=== PATIENT | male | born 1960 | race Caucasian/White ===

== ENCOUNTER 2016-03-24 08:33 | Emergency (ER) | payer OTHER ==
[~2016-03-24] VITALS: Ht 185.4 cm; Wt 80.5 kg
[~2016-03-24 08:33] MED LIST: CIPR-278 PO; HYDR-3965 PO; LISI-662 PO
[2016-03-24 08:43] VITALS: BP 143/99
[2016-03-24 09:48] LABS: BASOPHILS % (AUTO) 0.3 % (0.0-2.0); EOSINOPHILS % (AUTO) 0.7 % (1.0-6.0); HEMATOCRIT 38.3 % (41-53); HEMOGLOBIN 12.9 g/dL (13.5-17.5); LYMPHOCYTES # (AUTO) 1.5 K/uL (1.0-4.8); LYMPHOCYTES % (AUTO) 20.5 % (22.0-44.0); MEAN CORPUSCULAR HEMOGLOBIN 31.8 pg (26.0-34.0); MEAN CORPUSCULAR HGB CONC 33.6 G/dL (31.0-37.0); MEAN CORPUSCULAR VOLUME 94 fL (80-100); MONOCYTES # (AUTO) 0.5 K/uL (0.1-1.0); MONOCYTES % (AUTO) 6.9 % (2.0-9.0); NEUTROPHILS # (AUTO) 5.2 K/uL (1.8-7.7); NEUTROPHILS % (AUTO) 71.6 % (40.0-70.0); PLATELET COUNT (AUTO) 281 K/uL (150-450); RED BLOOD CELL COUNT(AUTO) 4.06 MIL/uL (4.50-5.90); RED CELL DISTRIBUTION WIDTH 14.7 % (11.5-14.5); WHITE BLOOD COUNT (AUTO) 7.2 K/uL (4.5-11.0)
[2016-03-24 10:00] LABS: ANION GAP 6 mmol/L (8-16); CALCIUM, TOTAL 8.5 mg/dL (8.8-10.5); CARBON DIOXIDE 28 mmol/L (22-29); CHLORIDE 101 mmol/L (98-107); CREATININE 0.79 mg/dL (0.60-1.30); GLOMERULAR FILTR. RATE CALC > 60 mL/min (>60); POTASSIUM 4.4 mmol/L (3.5-5.1); SODIUM SERUM 135 mmol/L (136-145); UREA NITROGEN, BLOOD 18 mg/dL (7-18)
[2016-03-24 10:04] LABS: ALANINE AMINOTRANSFERASE 36 U/L (12-78); ALBUMIN 3.7 g/dL (3.4-5.0); ASPARTATE AMINOTRANSFERASE 25 U/L (15-37); BILIRUBIN,TOTAL 0.2 mg/dL (0.1-1.0); TOTAL PROTEIN, SERUM 6.6 g/dL (6.4-8.2)
[2016-03-24] MEDS ORDERED: HALOPERIDOL 5 MG TABLET PO ONE (10:30)
== END 2016-03-24 11:50 | disposition left against medical advice (07) ==
LOC: EMS 08:35
DX: L03.032 Cellulitis of left toe (principal); R44.3 Hallucinations, unspecified; J45.909 Unspecified asthma, uncomplicated; J44.9 Chronic obstructive pulmonary disease, unspecified; I10 Essential (primary) hypertension; F17.210 Nicotine dependence, cigarettes, uncomplicated; Z88.0 Allergy status to penicillin
CPT/HCPCS: 36415; 80053; 80307; 85025; 99284; G0480

== ENCOUNTER 2016-12-04 10:30 | Emergency (ER) | payer OTHER ==
[~2016-12-04] VITALS: Ht 185.4 cm; Wt 77.3 kg
[~2016-12-04 10:30] MED LIST changes: -HYDR-3965 PO; +HYDR-4061 PO
[2016-12-04] MEDS ORDERED: MOME13HF2 IH (10:53)
[2016-12-04] MEDS ORDERED: LORA10TA7 PO (10:53)
[2016-12-04] MEDS ORDERED: ESCI10TA54 PO (10:53)
[2016-12-04] MEDS ORDERED: HYDROCODONE/ACETAMINOPHEN 10-325 MG TABLET PO ONE (12:15)
[2016-12-04 14:00] VITALS: BP 135/78
== END 2016-12-04 14:15 | disposition home or self-care (01) ==
LOC: EMS 10:37
DX: S00.93XA Contusion of unspecified part of head, initial encounter (principal); L03.116 Cellulitis of left lower limb; I10 Essential (primary) hypertension; J45.909 Unspecified asthma, uncomplicated; F17.210 Nicotine dependence, cigarettes, uncomplicated; Z88.0 Allergy status to penicillin; W18.39XA Other fall on same level, initial encounter; Y93.89 Activity, other specified; Y92.89 Other specified places as the place of occurrence of the external cause; Y99.8 Other external cause status
CPT/HCPCS: 70450; 99284

== ENCOUNTER 2017-06-25 17:41 | Emergency (ER) | payer OTHER ==
[~2017-06-25] VITALS: Ht 185.4 cm; Wt 75.0 kg
[~2017-06-25 17:41] MED LIST changes: -CIPR-278 PO; +ESCI10TA54 PO; -HYDR-4061 PO; +LORA10TA7 PO; +MOME13HF2 IH
[2017-06-25 18:07] VITALS: BP 180/97
[2017-06-25] MEDS ORDERED: HYDROCODONE/ACETAMINOPHEN 5-325 MG TABLET PO ONE (18:15)
[2017-06-25] MEDS ORDERED: ALBUTEROL SULFATE HFA 90 MCG/PUFF 8 GM INHALER IH ONE (18:15)
[2017-06-25] MEDS ORDERED: PERMETHRIN 5% 60 GM CREAM TP ONE (18:15)
== END 2017-06-25 18:31 | disposition home or self-care (01) ==
LOC: EMS 17:43
DX: L03.116 Cellulitis of left lower limb (principal); B86 Scabies; L55.0 Sunburn of first degree; J44.9 Chronic obstructive pulmonary disease, unspecified; J45.909 Unspecified asthma, uncomplicated; I10 Essential (primary) hypertension; F17.210 Nicotine dependence, cigarettes, uncomplicated; Z76.0 Encounter for issue of repeat prescription; Z88.0 Allergy status to penicillin; Z59.0 Homelessness
CPT/HCPCS: 94640; 99283; J3535

== ENCOUNTER 2018-10-12 00:56 | Emergency (ER) | payer SELFPAY ==
[~2018-10-12] VITALS: Ht 185.4 cm; Wt 75.0 kg
[2018-10-12 02:04] VITALS: BP 150/88
[2018-10-12] MEDS ORDERED: FLUCONAZOLE 150 MG TABLET PO ONE (03:15)
== END 2018-10-12 04:17 | disposition home or self-care (01) ==
LOC: EMS 00:57
DX: B35.3 Tinea pedis (principal); I10 Essential (primary) hypertension; J44.9 Chronic obstructive pulmonary disease, unspecified; F15.90 Other stimulant use, unspecified, uncomplicated; F17.210 Nicotine dependence, cigarettes, uncomplicated; Z88.0 Allergy status to penicillin

== ENCOUNTER 2018-10-12 17:47 | Emergency (ER) | payer SELFPAY ==
[~2018-10-12] VITALS: Ht 185.4 cm; Wt 75.0 kg
[2018-10-12 18:31] LABS: GLUCOSE,POINT OF CARE 87 MG/DL (70-110)
[2018-10-12 21:11] VITALS: BP 155/91
== END 2018-10-12 21:30 | disposition home or self-care (01) ==
LOC: EMS 17:47
DX: B35.3 Tinea pedis (principal); L03.032 Cellulitis of left toe; L03.031 Cellulitis of right toe; I10 Essential (primary) hypertension; J44.9 Chronic obstructive pulmonary disease, unspecified; F15.90 Other stimulant use, unspecified, uncomplicated; F17.210 Nicotine dependence, cigarettes, uncomplicated; Z76.0 Encounter for issue of repeat prescription; Z88.0 Allergy status to penicillin; Z88.2 Allergy status to sulfonamides; Z88.5 Allergy status to narcotic agent

== ENCOUNTER 2018-11-22 15:55 | Emergency (ER) | payer SELFPAY ==
[~2018-11-22] VITALS: Ht 185.4 cm; Wt 79.5 kg
[2018-11-22] MEDS ORDERED: LISI-662 PO (16:08)
[2018-11-22] MEDS ORDERED: ACETAMINOPHEN 500 MG TABLET PO ONE (17:00)
[2018-11-22] MEDS ORDERED: LISINOPRIL 10 MG TABLET PO ONE (17:00)
[2018-11-22 17:22] VITALS: BP 145/87
== END 2018-11-22 17:20 | disposition home or self-care (01) ==
LOC: EMS 15:57
DX: M79.18 Myalgia, other site (principal); I10 Essential (primary) hypertension; J44.9 Chronic obstructive pulmonary disease, unspecified; F15.90 Other stimulant use, unspecified, uncomplicated; F17.210 Nicotine dependence, cigarettes, uncomplicated; Z02.89 Encounter for other administrative examinations; Z59.0 Homelessness; Z88.0 Allergy status to penicillin; Z88.2 Allergy status to sulfonamides; Z88.5 Allergy status to narcotic agent

== ENCOUNTER 2019-02-10 11:56 | Emergency (ER) | payer OTHER ==
[~2019-02-10] VITALS: Ht 185.4 cm; Wt 79.5 kg
[~2019-02-10 11:56] MED LIST changes: -ESCI10TA54 PO; -LORA10TA7 PO; -MOME13HF2 IH
[2019-02-10 12:00] VITALS: BP 147/79
[2019-02-10] MEDS ORDERED: KETOROLAC TROMETHAMINE 30 MG/ML VIAL IM ONE (12:15)
== END 2019-02-10 12:30 | disposition home or self-care (01) ==
LOC: EMS 12:00
DX: L97.529 Non-pressure chronic ulcer of other part of left foot with unspecified severity (principal); M79.671 Pain in right foot; J44.9 Chronic obstructive pulmonary disease, unspecified; I10 Essential (primary) hypertension; F17.210 Nicotine dependence, cigarettes, uncomplicated; F15.90 Other stimulant use, unspecified, uncomplicated; Z59.0 Homelessness; Z88.0 Allergy status to penicillin; Z88.2 Allergy status to sulfonamides; Z88.5 Allergy status to narcotic agent
CPT/HCPCS: 96372; 99283; 99406; J1885

== ENCOUNTER 2019-04-02 10:08 | Emergency (ER) | payer OTHER | END 2019-04-02 10:32 | disposition left against medical advice (07) | LOC: EMS 10:09 | DX: L08.9 Local infection of the skin and subcutaneous tissue, unspecified (principal); M79.671 Pain in right foot; I10 Essential (primary) hypertension; J44.9 Chronic obstructive pulmonary disease, unspecified; F17.210 Nicotine dependence, cigarettes, uncomplicated; F15.90 Other stimulant use, unspecified, uncomplicated; Z59.0 Homelessness; Z79.899 Other long term (current) drug therapy; Z88.5 Allergy status to narcotic agent; Z88.2 Allergy status to sulfonamides ==

== ENCOUNTER 2019-08-15 15:40 | Emergency (ER) | payer OTHER ==
[~2019-08-15] VITALS: Ht 185.4 cm; Wt 80.9 kg
[2019-08-15] MEDS ORDERED: IBUPROFEN 400 MG TABLET PO ONE (17:30)
[2019-08-15] MEDS ORDERED: ACETAMINOPHEN 325 MG TABLET PO ONE (17:30)
[2019-08-15] MEDS ORDERED: DOXYCYCLINE HYCLATE 100 MG CAPSULE PO ONE (17:30)
[2019-08-15 18:26] VITALS: BP 140/80
== END 2019-08-15 18:29 | disposition home or self-care (01) ==
LOC: EMS 15:40
DX: L97.519 Non-pressure chronic ulcer of other part of right foot with unspecified severity (principal); L97.529 Non-pressure chronic ulcer of other part of left foot with unspecified severity; I10 Essential (primary) hypertension; Z59.0 Homelessness